=== PATIENT | male | born 1965 | race Caucasian/White ===

== ENCOUNTER 2019-09-08 20:30 | Emergency (ER) | payer OTHER ==
[2019-09-08] MEDS ORDERED: CEFADROXIL500 M1 PO (20:58)
== END 2019-09-08 21:44 | disposition home or self-care (01) ==
LOC: ED 20:30
DX: S51.811A Laceration without foreign body of right forearm, initial encounter (principal); W45.8XXA Other foreign body or object entering through skin, initial encounter; Y93.89 Activity, other specified; Y92.89 Other specified places as the place of occurrence of the external cause; Y99.8 Other external cause status